=== PATIENT | male | born 1990 | race Caucasian/White ===

== ENCOUNTER 2023-05-11 07:01 | Day surgery (SDC) | payer OTHER ==
[2023-05-11] VITALS (12 sets, daily range): BP systolic 112–140; BP diastolic 72–125
[~2023-05-11] VITALS: Ht 190.5 cm; Wt 100.9 kg
[~2023-05-11 07:01] MED LIST: AMOCLA875 PO; AMPDEX30CR PO; CETI10 PO; CLOT1TC TOP; CODACE30 PO; CODGUAEL PO; FLUC100 PO; FLUT.05NI; MONT10T; ONDA4ODT PO; OXYC5 PO; SULTRIDS PO; TERB24TC TOP
--- NOTE | 2023-05-11 08:05 | NUR ---
05/11/23 0805 Joslyn Esposito HISTORY, CHART, MEDICATIONS AND ALLERGIES REVIEWED BEFORE START OF PROCEDURE. PATIENT CONFIRMS NPO STATUS AND AGREES WITH SCHEDULED PROCEDURE. 3-LEAD EKG REVIEWED WITH PHYSICIAN PRIOR TO START OF PROCEDURE. MONITOR INTACT WITH CONTINUOUS PULSE OXIMETRY,CAPNOGRAPHY, 3-LEAD EKG, INTERMITTENT BP. SUPPLEMENTAL O2 TO BE TITRATED THROUGHOUT PROCEDURE TO MAINTAIN O2 SATURATION ABOVE 90%. PATIENT DETERMINED TO BE ASA APPROPRIATE FOR PROPOFOL SEDATION PRIOR TO START OF PROCEDURE BY .HURRICAINE SPRAY TO OROPHARYX.BITE BLOCK PLACED.
--- NOTE | 2023-05-11 08:28 | NUR ---
REPORT RECEIVED FROM Chan. PT ABLE TO REPOSITION SELF IN BED. PT REQUESTING PO FLUIDS AND TOLERATING THEM WELL. PT DENIES PAIN, NAUSEA, OR OTHER DISCOMFORTS AT THIS TIME.
--- NOTE | 2023-05-11 08:45 | NUR ---
Patient up to Ambulate independently. Gait steady. VSS. Discharge instructions reviewed with patient. Patient verbalizes understanding. Copy given to patient to take home. PT DENIES ANY DISCOMFORTS AND VERBALIZES READINESS TO GO HOME. Patient States Post-Procedure ride home has been arranged. Discharged via wheelchair to private car for ride home. PT BELONGINGS RETURNED TO PT.
== END 2023-05-11 08:48 | disposition home or self-care (01) ==
LOC: ORSCMMR 07:01 → ORD 08:00 → ORSCMMR 08:00
PROVIDERS: Internal Medicine Gastroenterology
PROC: 0DB48ZX Excision of Esophagogastric Junction, Via Natural or Artificial Opening Endoscopic, Diagnostic (ICD-10-PCS; principal; 2023-05-11 08:00)
PROC: 0DB98ZX Excision of Duodenum, Via Natural or Artificial Opening Endoscopic, Diagnostic (ICD-10-PCS; principal; 2023-05-11 08:00)
PROC: 0DB68ZX Excision of Stomach, Via Natural or Artificial Opening Endoscopic, Diagnostic (ICD-10-PCS; principal; 2023-05-11 08:00)
PROC: 0DB58ZX Excision of Esophagus, Via Natural or Artificial Opening Endoscopic, Diagnostic (ICD-10-PCS; principal; 2023-05-11 08:00)
DX: R13.14 Dysphagia, pharyngoesophageal phase (principal); K29.70 Gastritis, unspecified, without bleeding; K44.9 Diaphragmatic hernia without obstruction or gangrene; F90.9 Attention-deficit hyperactivity disorder, unspecified type; Z79.899 Other long term (current) drug therapy
CPT/HCPCS: 88305; 88312; 88342; A9270; C1726; J2250; J2704; J7120

== ENCOUNTER 2024-07-02 06:08 | Day surgery (SDC) | payer OTHER ==
[~2024-07-02] VITALS: Ht 193 cm; Wt 105.2 kg
[2024-07-02] MEDS ORDERED: Lactated Ringer's 1,000 ML IV ONE (06:58)
[2024-07-02] MEDS ORDERED: NS 50 ML IV ONE (07:01)
[2024-07-02] MEDS ORDERED: CeFAZolin Sodium 2,000 MG VIAL ONE (07:01)
[2024-07-02] MEDS ORDERED: propofoL 20 ML IV ONE (07:03)
[2024-07-02] MEDS ORDERED: FentaNYL Citrate 50 MCG/ML 2 ML Injection ONE ×2 (07:03→08:28)
[2024-07-02] MEDS ORDERED: Midazolam HCl 1MG / ML 2ML Vial ONE (07:16)
[2024-07-02] MEDS ORDERED: Bupivacaine 0.5% W/EPI 1:200000 SDV 30ML INJ ONE (07:43)
[2024-07-02] MEDS ORDERED: HYDROcodone 5-APAP 325 TAB ONE (08:42)
[2024-07-02 09:05] VITALS: BP 143/66
== END 2024-07-02 09:17 | disposition home or self-care (01) ==
LOC: ORSCSDS 06:08
PROVIDERS: Podiatrist Foot & Ankle Surgery
PROC: 0JBR0ZX Excision of Left Foot Subcutaneous Tissue and Fascia, Open Approach, Diagnostic (ICD-10-PCS; principal; 2024-07-02 07:30)
PROC: 0JBQ0ZX Excision of Right Foot Subcutaneous Tissue and Fascia, Open Approach, Diagnostic (ICD-10-PCS; principal; 2024-07-02 07:30)
DX: G57.61 Lesion of plantar nerve, right lower limb (principal); G57.62 Lesion of plantar nerve, left lower limb; I10 Essential (primary) hypertension; F90.9 Attention-deficit hyperactivity disorder, unspecified type; Z79.899 Other long term (current) drug therapy
CPT/HCPCS: A9270; J0690; J2250; J2704; J3010; J7120